=== PATIENT | female | born 1995 | race Caucasian/White ===

== ENCOUNTER 2017-02-13 03:02 | Emergency (ER) | payer MEDICAID, OTHER ==
[~2017-02-13] VITALS: Ht 162.6 cm; Wt 62.1 kg
[2017-02-13 03:05] VITALS: BP 118/78
--- NOTE | 2017-02-13 03:15 | NUR ---
PT AMBULATED TO BED 08
--- NOTE | 2017-02-13 03:30 | NUR ---
PATIENT BEING EVALUATED BY DR. JESUS.
[2017-02-13 04:15] VITALS: BP 112/67
--- NOTE | 2017-02-13 04:15 | NUR ---
Patient discharged with v/s stable. Written and verbal after care instructions given and explained. Patient alert, oriented and verbalized understanding of instructions. Ambulatory with steady gait. All questions addressed prior to discharge. ID band removed. Patient advised to follow up with PMD. Rx of Cipro and Pyridium given. Patient educated on indication of medication including possible reaction and side effects. Opportunity to ask questions provided and answered.
== END 2017-02-13 04:15 | disposition home or self-care (01) ==
LOC: MED 03:02
DX: N39.0 Urinary tract infection, site not specified (principal); Z88.0 Allergy status to penicillin
CPT/HCPCS: 81025; 99283